=== PATIENT | female | born 1950 | race Caucasian/White ===

== ENCOUNTER 2016-09-14 23:45 | Inpatient (IN) | payer MEDICARE, MEDICAID ==
[2016-09-15] MEDS ORDERED: NITROGLYCERIN SUBLINGUAL 0.4 MG BOTTLE OF 25. SL PRN
[2016-09-15] MEDS ORDERED: ASPIRIN 81 MG TAB.CHEW PO ONE (00:30)
[2016-09-15 00:47] LABS: BASO # 0.1 x10^3/uL (0.0-0.2); BASO % 1 % (0-3); EOS % 3 % (0-3); HEMATOCRIT 37.7 % (36.0-47.0); HEMOGLOBIN 12.1 g/dL (12.0-15.5); LYMPH # 3.2 x10^3/uL (1.0-4.8); LYMPH % 24 % (24-48); MEAN CORPUSCULAR HEMOGLOBIN 29 pg (25-35); MEAN CORPUSCULAR HGB CONC 32 g/dL (31-37); MEAN CORPUSCULAR VOLUME 89 fL (79-100); MONO % 9 % (0-9); NEUT % 63 % (31-73); PLATELET COUNT 417 x10^3/uL (140-400); RED BLOOD COUNT 4.24 x10^6/uL (3.50-5.40); RED CELL DISTRIBUTION WIDTH 14.7 % (11.5-14.5); WHITE BLOOD COUNT 13.4 x10^3/uL (4.0-11.0)
[2016-09-15 00:59] LABS: ANION GAP 7 (6-14); BLOOD UREA NITROGEN 31 mg/dL (7-20); CALCIUM 8.6 mg/dL (8.5-10.1); CARBON DIOXIDE 33 mmol/L (21-32); CHLORIDE 101 mmol/L (98-107); CREATININE 0.6 mg/dL (0.6-1.0); GLUCOSE 110 mg/dL (70-99); POTASSIUM 4.2 mmol/L (3.5-5.1); SODIUM 141 mmol/L (136-145)
[2016-09-15] MEDS ORDERED: ONDANSETRON PF 4 MG/2 ML VIAL. IV PRN (01:00)
[2016-09-15] MEDS ORDERED: MORPHINE SULFATE 2 MG/ML DISP.SYRIN. IV PRN ×2 (01:00)
[2016-09-15 01:05] LABS: ALK PHOS 47 U/L (46-116); ALT (SGPT) 55 U/L (14-59); AST (SGOT) 25 U/L (15-37); DIRECT BILIRUBIN < 0.1 mg/dL (0.0-0.2); TOTAL BILIRUBIN 0.3 mg/dL (0.2-1.0); TOTAL PROTEIN 5.7 g/dL (6.4-8.2)
[2016-09-15 01:16] LABS: % EOS 2 % (0-5); PLT ESTIMATE ADEQUATE (ADEQUATE)
--- NOTE | 2016-09-15 02:05 | ACF ---
Admission Forms Criteria PAIN MANAGEMENT [facility] Clinical Indications for Admission to Inpatient Care (Place 'X' for any and all applicable criteria): Hospital admission is needed for appropriate care of the patient because of ANY ONE of the following are present (1)(2)(3)(4)(5): [X]I. Severe pain requiring acute inpatient management as indicated by ALL of the following (2)(5)(10): [X]a) Continuous or frequent (eg, every 2 to 4 hours) parenteral analgesics required [A] [ ]b) Necessity (ie, alternative approaches not effective) for analgesic regimen that can only be performed or initiated in inpatient setting [ ]II. Pain causing debilitation to the point of inability to function or be supported at any other level of care [ ]III. Severe side effects from pain medications as indicated by ANY ONE of the following (12)(13)(14)(15): [ ]a) Uncontrollable seizures [ ]b) Cardiac arrhythmias [ ]c) Severe volume depletion [ ]d) Vomiting that is uncontrollable at any other level of care [ ]e) Altered mental status (Sheridan coma scale score less than 13) [ ]f) Obstipation with inadequate GI function to maintain nutrition [ ]g) Dehydration that is severe or persistent The original [employer] content created by [employer] has been revised. The portions of the content which have been revised are identified through the use of italic text or in bold, and [facility] has neither reviewed nor approved the modified material. All other unmodified content is copyright [employer]. Please see references footnoted in the original [employer] edition 2016 Admission Criteria Met?: Yes JENNIFER LONGORIA Sep 15, 2016 02:05
--- NOTE | 2016-09-15 02:27 | PHYS DOC ---
Past Medical History Past Medical History: Anxiety, Arthritis, COPD, Depression, High Cholesterol, Hypertension Additional Past Medical Histor: OVERACTIVE BLADDER, MACULAR DEGENERATION, Past Surgical History: Appendectomy, Cholecystectomy, Tonsillectomy Additional Past Surgical Histo: CARPAL TUNNEL, CATARACT, Alcohol Use: None Drug Use: None Adult General Chief Complaint Chief Complaint: CHEST PAIN HPI HPI 65-year-old female presenting to the emergency department today with chest pain. She reports it starting approximately 2 hours ago radiating to the back is associated with nausea. She describes it as a heaviness and 5 out of 10. The pain is intermittent. She also has had a cough for a few days without fever. She reports having COPD but denies this sensation feeling like her COPD. Review of Systems Review of Systems ROS negative for abdominal pain. Positive for nausea. Negative for vomiting. Negative for headache fevers or chills. All other review of systems is negative unless otherwise noted in history of present illness. Current Medications Current Medications Current Medications Medications (Trade) Dose Ordered Sig/Elie Start Time Stop Time Status Last Admin Dose Admin Aspirin (Children'S Aspirin) 324 mg 1X ONCE 09/15/16 00:30 09/15/16 00:31 DC Morphine Sulfate 2 mg PRN Q1HR PRN 09/15/16 00:00 09/15/16 06:00 Nitroglycerin (Nitrostat) 0.4 mg PRN Q5MIN PRN 09/15/16 00:00 Allergies Allergies Allergies Coded Allergies Type Severity Reaction Last Updated Verified Penicillins Allergy Intermediate 09/15/16 Yes codeine Allergy Intermediate 09/15/16 Yes vitamin A Allergy Intermediate 09/15/16 Yes Physical Exam Physical Exam Constitutional: Well developed, well nourished, no acute distress, non-toxic appearance. HENT: Normocephalic, atraumatic, bilateral external ears normal, oropharynx moist, no oral exudates, nose normal. [] Eyes: PERRLA, EOMI, conjunctiva normal, no discharge. Neck: Normal range of motion, no tenderness, supple, no stridor. [] Cardiovascular:Heart rate regular rhythm, no murmur Lungs & Thorax: Patient's lung sounds show prolonged expiratory phase. No crackles. Mild wheezing more on the left than the right. Abdomen: Bowel sounds normal, soft, no tenderness, no masses, no pulsatile masses. [] Skin: Warm, dry, no erythema, no rash. Back: No tenderness, no CVA tenderness. [] Extremities: No tenderness, no cyanosis, no clubbing, ROM intact, no edema. Neurologic: Alert and oriented X 3, normal motor function, normal sensory function, no focal deficits noted. Psychologic: Affect normal, judgement normal, mood normal. [] Current Patient Data Vital Signs Vital Signs Date Time Temp Pulse Resp B/P Pulse Ox O2 Delivery O2 Flow Rate FiO2 09/14/16 23:58 98.0 94 20 155/65 94 Room Air 98.0 Lab Values Laboratory Tests Test 09/15/16 00:30 White Blood Count 13.4x10^3/uL (4.0-11.0) H Red Blood Count 4.24x10^6/uL (3.50-5.40) Hemoglobin 12.1g/dL (12.0-15.5) Hematocrit 37.7% (36.0-47.0) Mean Corpuscular Volume 89fL (79-100) Mean Corpuscular Hemoglobin 29pg (25-35) Mean Corpuscular Hemoglobin Concent 32g/dL (31-37) Red Cell Distribution Width 14.7% (11.5-14.5) H Platelet Count 417x10^3/uL (140-400) H Neutrophils (%) (Auto) 63% (31-73) Lymphocytes (%) (Auto) 24% (24-48) Monocytes (%) (Auto) 9% (0-9) Eosinophils (%) (Auto) 3% (0-3) Basophils (%) (Auto) 1% (0-3) Neutrophils # (Auto) 8.5x10^3uL (1.8-7.7) H Lymphocytes # (Auto) 3.2x10^3/uL (1.0-4.8) Monocytes # (Auto) 1.2x10^3/uL (0.0-1.1) H Eosinophils # (Auto) 0.4x10^3/uL (0.0-0.7) Basophils # (Auto) 0.1x10^3/uL (0.0-0.2) Segmented Neutrophils % 66% (35-66) Band Neutrophils % 2% (0-9) Lymphocytes % 25% (24-48) Monocytes % 5% (0-10) Eosinophils % 2% (0-5) Platelet Estimate Adequate (ADEQUATE) Sodium Level 141mmol/L (136-145) Potassium Level 4.2mmol/L (3.5-5.1) Chloride Level 101mmol/L (98-107) Carbon Dioxide Level 33mmol/L (21-32) H Anion Gap 7 (6-14) Blood Urea Nitrogen 31mg/dL (7-20) H Creatinine 0.6mg/dL (0.6-1.0) Estimated GFR (Cockcroft-Gault) 100.0 Glucose Level 110mg/dL (70-99) H Calcium Level 8.6mg/dL (8.5-10.1) Total Bilirubin 0.3mg/dL (0.2-1.0) Direct Bilirubin < 0.1mg/dL (0.0-0.2) Aspartate Amino Transferase (AST) 25U/L (15-37) Alanine Aminotransferase (ALT) 55U/L (14-59) Alkaline Phosphatase 47U/L (46-116) Troponin I Quantitative < 0.017ng/mL (0.000-0.055) PO-Mxt-O-Type Natriuretic Peptide 46pg/mL (0-124) Total Protein 5.7g/dL (6.4-8.2) L Albumin 3.0g/dL (3.4-5.0) L Lipase 245U/L (73-393) Laboratory Tests 09/15/16 00:30 Laboratory Tests 09/15/16 00:30 EKG EKG [] EKG shows sinus rhythm with a regular rate. [place] is within normal limits. ST segments congruent. Radiology/Procedures Radiology/Procedures Chest x-ray shows mild radio opacification the left lower lobe cannot rule out infiltrate. Patient is not febrile and is not hypoxic. We will admit the patient for clinical monitoring and reassessment in the morning. Course & Med Decision Making Course & Med Decision Making Pertinent Labs and Imaging studies reviewed. (See chart for details) [] 65-year-old female presenting to the emergency department today with chest pain shortness of breath. On evaluation patient's vital signs afebrile. Mildly fast heart rate. Mild hypertension. Physical exam showed wheezing and prolonged expert phase. The patient was given DuoNeb. The patient was also given aspirin prior to arrival. EKG unremarkable. Chest x-ray showed radio opacification of the left lower area with cardiac blurring possible pneumonia though the patient' s clinical presentation does not suggest it. Labs sent which showed leukocytosis. Chemistry panel showed uremia with mild CO2 retention. Troponin negative. The patient was then admitted to our hospital for further evaluation workup and care. Dragon Disclaimer Dragon Disclaimer This electronic medical record was generated, in whole or in part, using a voice recognition dictation system. Departure Departure Impression: Primary Impression: Chest pain Disposition: ADMITTED INPATIENT Admitting Physician: Edwina Mayer Condition: STABLE Referrals: TERI CARRASQUILLO MD (PCP) SANJU CARRILLO MD Sep 15, 2016 02:27
[2016-09-15 02:30] VITALS: BP 129/68
[2016-09-15] MEDS ORDERED: IPRATRPIUM/ALBUTEROL 0.5/2.5MG 3 ML NEBU. NEB ONE (03:00)
[2016-09-15] MEDS ORDERED: TOLT2TAB2 PO (05:39)
[2016-09-15] MEDS ORDERED: BUDE10.2 IH (05:39)
[2016-09-15] MEDS ORDERED: FLUT9.9S NS (05:39)
[2016-09-15] MEDS ORDERED: CITA40TA12 PO (05:39)
[2016-09-15] MEDS ORDERED: CELE200C PO (05:39)
[2016-09-15] MEDS ORDERED: ACET325T9 PO (05:39)
[2016-09-15] MEDS ORDERED: ROFL500T PO (05:39)
[2016-09-15] MEDS ORDERED: ASPI-482 PO (05:39)
[2016-09-15] MEDS ORDERED: CEFT1PIG2 IV (05:39)
[2016-09-15] MEDS ORDERED: GUAI600T28 PO (05:39)
[2016-09-15] MEDS ORDERED: PRED20TA PO (06:14)
[2016-09-15] MEDS ORDERED: CALC-222 PO (06:14)
[2016-09-15] MEDS ORDERED: LISI10TA2 PO (06:14)
[2016-09-15] MEDS ORDERED: IPRA3AMP NEB (06:14)
[2016-09-15] MEDS ORDERED: PRED50TA PO (06:14)
[2016-09-15] MEDS ORDERED: UMEC62.5 IH (06:14)
[2016-09-15] MEDS ORDERED: PRED-220 PO (06:14)
[2016-09-15] MEDS ORDERED: ENOX40DI SQ (06:14)
--- NOTE | 2016-09-15 06:14 | EKG ---
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
[2016-09-15] MEDS ORDERED: SIMV10TA3 PO (06:19)
[2016-09-15] MEDS ORDERED: CHOL10002 PO (06:19)
[2016-09-15] MEDS ORDERED: PROAIR HFA8.5 GM INH (06:19)
[2016-09-15] MEDS ORDERED: VITA400C36 PO (06:19)
[2016-09-15] MEDS ORDERED: DESV100T PO (06:19)
[2016-09-15] MEDS ORDERED: MULT-638 PO (06:19)
[2016-09-15] MEDS ORDERED: ROPI0.5T PO (06:19)
[2016-09-15 07:20] VITALS: BP_SYST 116; BP_SYST 131; BP_DIAS 73; BP_DIAS 77
--- NOTE | 2016-09-15 07:48 | RAD ---
EXAM: Chest, single view. HISTORY: Chest pain. COMPARISON: None. FINDINGS: A frontal view of the chest is obtained. There is bilateral basilar atelectasis. There is nodular opacity overlying the left upper lobe. There is no consolidation, effusion or pneumothorax. The heart is normal in size. There is a fracture deformity of the proximal right humerus. IMPRESSION: 1. Suspected bilateral basilar atelectasis. 2. Small nodular opacity overlying the left upper lobe, more prominent than expected for an anterior rib and. Short-term radiographic or CT follow-up is recommended to exclude a noncalcified nodule in this location. 3. Proximal right humeral fracture deformity of uncertain chronicity.
[2016-09-15] MEDS ORDERED: NON FORMULARY ITEM (Albuterol Sulfate (Proair Hfa Inhaler) 2 PUFF) INH PRN (08:30)
[2016-09-15] MEDS ORDERED: ACETAMINOPHEN 325 MG TABLET. PO PRN (08:30)
--- NOTE | 2016-09-15 08:30 | PDOC ---
PROGRESS NOTES Subjective Subjective Patient reports that chest pain is much improved but some mild discomfort persists. Objective Objective Vital Signs Date Time Temp Pulse Resp B/P Pulse Ox O2 Delivery O2 Flow Rate FiO2 09/15/16 07:20 98.1 91 19 116/73 98 Nasal Cannula 2.0 98.1 Intake and Output 09/15/16 07:00 Output Total 300 ml Balance -300 ml Output Urine Total 300 ml # Voids 1 Physical Exam Abdomen: Normal bowel sounds, Soft, No tenderness Heart: Regular rate, Other (some chest wall TTP is present) Extremities: No edema General: Alert, Oriented X3, No acute distress Lungs: Other (BS moderately decreased throughout, otherwise CTA, no wheezes heard) Assessment Assessment Problems Medical Problems: (1) Chest pain Status: Acute Plan Plan of Care 1. Chest pain - atypical but patient with several risk factors and no cardiac evaluation for years per her report. First Troponin is WNL. Will consult Cardiology to help with further evaluation, patient is agreeable to this. 2. Acute on chronic respiratory failure with AE COPD and recent pneumonia - Continue Rocephin, po Prednisone and all of patient's pulmonary meds. CXR at admission with some atelectasis but no acute infiltrate. 3. chronic anxiety - stable, continue home meds. 4. debility from recent hospitalization - this is why patient was at [facility]. Continue therapies while she is here, anticipate transfer back to if cardiac testing is unremarkable. Comment Review of Relevant I have reviewed the following items brennen (where applicable) has been applied. Labs Laboratory Tests Test 09/15/16 00:30 White Blood Count 13.4x10^3/uL (4.0-11.0) Red Blood Count 4.24x10^6/uL (3.50-5.40) Hemoglobin 12.1g/dL (12.0-15.5) Hematocrit 37.7% (36.0-47.0) Mean Corpuscular Volume 89fL (79-100) Mean Corpuscular Hemoglobin 29pg (25-35) Mean Corpuscular Hemoglobin Concent 32g/dL (31-37) Red Cell Distribution Width 14.7% (11.5-14.5) Platelet Count 417x10^3/uL (140-400) Neutrophils (%) (Auto) 63% (31-73) Lymphocytes (%) (Auto) 24% (24-48) Monocytes (%) (Auto) 9% (0-9) Eosinophils (%) (Auto) 3% (0-3) Basophils (%) (Auto) 1% (0-3) Neutrophils # (Auto) 8.5x10^3uL (1.8-7.7) Lymphocytes # (Auto) 3.2x10^3/uL (1.0-4.8) Monocytes # (Auto) 1.2x10^3/uL (0.0-1.1) Eosinophils # (Auto) 0.4x10^3/uL (0.0-0.7) Basophils # (Auto) 0.1x10^3/uL (0.0-0.2) Segmented Neutrophils % 66% (35-66) Band Neutrophils % 2% (0-9) Lymphocytes % 25% (24-48) Monocytes % 5% (0-10) Eosinophils % 2% (0-5) Platelet Estimate Adequate (ADEQUATE) Sodium Level 141mmol/L (136-145) Potassium Level 4.2mmol/L (3.5-5.1) Chloride Level 101mmol/L (98-107) Carbon Dioxide Level 33mmol/L (21-32) Anion Gap 7 (6-14) Blood Urea Nitrogen 31mg/dL (7-20) Creatinine 0.6mg/dL (0.6-1.0) Estimated GFR (Cockcroft-Gault) 100.0 Glucose Level 110mg/dL (70-99) Calcium Level 8.6mg/dL (8.5-10.1) Total Bilirubin 0.3mg/dL (0.2-1.0) Direct Bilirubin < 0.1mg/dL (0.0-0.2) Aspartate Amino Transf (AST/SGOT) 25U/L (15-37) Alanine Aminotransferase (ALT/SGPT) 55U/L (14-59) Alkaline Phosphatase 47U/L (46-116) Troponin I Quantitative < 0.017ng/mL (0.000-0.055) MZ-Hvx-G-Type Natriuretic Peptide 46pg/mL (0-124) Total Protein 5.7g/dL (6.4-8.2) Albumin 3.0g/dL (3.4-5.0) Lipase 245U/L (73-393) Laboratory Tests Test 09/15/16 00:30 White Blood Count 13.4x10^3/uL (4.0-11.0) Red Blood Count 4.24x10^6/uL (3.50-5.40) Hemoglobin 12.1g/dL (12.0-15.5) Hematocrit 37.7% (36.0-47.0) Mean Corpuscular Volume 89fL (79-100) Mean Corpuscular Hemoglobin 29pg (25-35) Mean Corpuscular Hemoglobin Concent 32g/dL (31-37) Red Cell Distribution Width 14.7% (11.5-14.5) Platelet Count 417x10^3/uL (140-400) Neutrophils (%) (Auto) 63% (31-73) Lymphocytes (%) (Auto) 24% (24-48) Monocytes (%) (Auto) 9% (0-9) Eosinophils (%) (Auto) 3% (0-3) Basophils (%) (Auto) 1% (0-3) Neutrophils # (Auto) 8.5x10^3uL (1.8-7.7) Lymphocytes # (Auto) 3.2x10^3/uL (1.0-4.8) Monocytes # (Auto) 1.2x10^3/uL (0.0-1.1) Eosinophils # (Auto) 0.4x10^3/uL (0.0-0.7) Basophils # (Auto) 0.1x10^3/uL (0.0-0.2) Segmented Neutrophils % 66% (35-66) Band Neutrophils % 2% (0-9) Lymphocytes % 25% (24-48) Monocytes % 5% (0-10) Eosinophils % 2% (0-5) Platelet Estimate Adequate (ADEQUATE) Sodium Level 141mmol/L (136-145) Potassium Level 4.2mmol/L (3.5-5.1) Chloride Level 101mmol/L (98-107) Carbon Dioxide Level 33mmol/L (21-32) Anion Gap 7 (6-14) Blood Urea Nitrogen 31mg/dL (7-20) Creatinine 0.6mg/dL (0.6-1.0) Estimated GFR (Cockcroft-Gault) 100.0 Glucose Level 110mg/dL (70-99) Calcium Level 8.6mg/dL (8.5-10.1) Total Bilirubin 0.3mg/dL (0.2-1.0) Direct Bilirubin < 0.1mg/dL (0.0-0.2) Aspartate Amino Transf (AST/SGOT) 25U/L (15-37) Alanine Aminotransferase (ALT/SGPT) 55U/L (14-59) Alkaline Phosphatase 47U/L (46-116) Troponin I Quantitative < 0.017ng/mL (0.000-0.055) RW-Dlg-W-Type Natriuretic Peptide 46pg/mL (0-124) Total Protein 5.7g/dL (6.4-8.2) Albumin 3.0g/dL (3.4-5.0) Lipase 245U/L (73-393) Medications Current Medications Aspirin (Children'S Aspirin) 324 mg 1X ONCE PO ; Start 09/15/16 at 00:30; Stop 09/15/16 at 00:31; Status DC Nitroglycerin (Nitrostat) 0.4 mg PRN Q5MIN PRN SL CHEST PAIN; Start 09/15/16 at 00:00 Morphine Sulfate 2 mg PRN Q1HR PRN IV SEVERE PAIN; Start 09/15/16 at 00:00; Stop 09/15/16 at 06:00; Status DC Ondansetron HCl (Zofran) 4 mg PRN Q8HRS PRN IV NAUSEA/VOMITING; Start 09/15/16 at 01:00; Stop 09/16/16 at 00:59 Morphine Sulfate 2 mg PRN Q2HR PRN IV SEVERE PAIN; Start 09/15/16 at 01:00; Stop 09/16/16 at 00:59 Albuterol/ Ipratropium 3 ml 3 ml 1X ONCE NEB ; Start 09/15/16 at 03:00; Stop at 03:01; Status DC Levofloxacin/ Dextrose (LEVAQUIN 500mg PREMIX) 100 ml @ 100 mls/hr 1X ONCE IV Last administered on 09/15/16t 06:31; Start 09/15/16 at 06:00; Stop 09/15/16 at 06:59; Status DC Active Scripts Active Reported Vitamin E (Vitamin E Mixed) 400 Unit Capsule 400 Unit PO DAILY Vitamin D (Cholecalciferol (Vitamin D3)) 1,000 Unit Tablet 1,000 Unit PO DAILY Thera M Plus Tablet (Multivits,Ca,Minerals/Iron/FA) 1 Each Tablet 1 Each PO DAILY Simvastatin 10 Mg Tablet 1 Tab PO QHS Requip (Ropinirole Hcl) 0.5 Mg Tablet 0.25 Mg PO HS Proair Hfa Inhaler (Albuterol Sulfate) 8.5 Gm Hfa.aer.ad 2 Puff INH PRN Q4HRS PRN Pristiq Er (Desvenlafaxine Succinate) 100 Mg Tab.er.24h 1 Tab PO DAILY Prednisone 20 Mg Tablet 60 Mg PO DAILY Prednisone 50 Mg Tablet 50 Mg PO DAILY Prednisone 20 Mg Tablet 40 Mg PO DAILY Prednisone 20 Mg Tablet 1 Tab PO DAILY Prednisone 20 Mg Tablet 30 Mg PO DAILY Prednisone 10 Mg Tablet 10 Mg PO DAILY Oyster Shell 500 Mg + Vit D Tb (Calcium Carbonate/Vitamin D3) 1 Each Tablet 1 Each PO TID Lovenox (Enoxaparin Sodium) 40 Mg/0.4 Ml Disp.syrin 0.4 Ml SQ DAILY Lisinopril 10 Mg Tablet 1 Tab PO DAILY Duoneb 0.5-3(2.5) Mg/3 Ml (Albuterol/Ipratropium) 3 Ml Ampul.neb 3 Ml NEB QID Incruse Ellipta (Umeclidinium [place]) 62.5 Mcg Blst.w.dev 62.5 Mcg IH DAILY Guaifenesin 600 Mg Tablet.er 600 Mg PO BID Flonase Allergy Relief (Fluticasone Propionate) 9.9 Ml [place].susp 2 Sprays NS DAILY Detrol (Tolterodine Tartrate) 2 Mg Tablet 2 Mg PO BID Daliresp (Roflumilast) 500 Mcg Tablet 1 Tab PO DAILY Celexa (Citalopram Hydrobromide) 40 Mg Tablet 1 Tab PO DAILY Celebrex (Celecoxib) 200 Mg Capsule 1 Cap PO DAILY Ceftriaxone 1 Gm-D5w Bag (Ceftriaxone Na/Dextrose,Iso) 1 Gm/50 Ml Piggyback 1 Gm IV DAILY Symbicort 160-4.5 Mcg Inhaler (Budesonide/Formoterol Fumarate) 10.2 Gm Hfa.aer.ad 2 Puff IH BID Aspir 81 (Aspirin) 81 Mg Tablet.dr 1 Tab PO DAILY Tylenol (Acetaminophen) 325 Mg Tablet 2 Tab PO PRN Q4HRS PRN Vitals/I & O Vital Sign - Last 24 Hours 09/14/16 09/15/16 09/15/16 09/15/16 23:58 00:57 01:27 01:57 Temp 98.0 98.0 Pulse 94 90 88 88 Resp 20 26 20 26 B/P 155/65 109/56 129/60 110/51 Pulse Ox 94 92 94 95 O2 Delivery Room Air Nasal Cannula Nasal Cannula Nasal Cannula O2 Flow Rate 2 2 2 09/15/16 09/15/16 09/15/16 02:30 02:57 07:20 Temp 97.5 98.1 97.5 98.1 Pulse 93 91 Resp 20 19 B/P 129/68 116/73 Pulse Ox 96 98 O2 Delivery Nasal Cannula Nasal Cannula Nasal Cannula O2 Flow Rate 2.0 3.0 2.0 Intake and Output 09/14/16 09/14/16 09/15/16 15:00 23:00 07:00 Output Total 300 ml Balance -300 ml ERICA COLIN MD Sep 15, 2016 08:30
[2016-09-15] MEDS ORDERED: NON FORMULARY ITEM (Budesonide/Formoterol Fumarate (Symbicort 160-4.5 Mcg Inhaler) 2 PUFF) IH SCH (09:00)
[2016-09-15] MEDS ORDERED: IPRATRPIUM/ALBUTEROL 0.5/2.5MG 3 ML NEBU. NEB SCH (09:00)
[2016-09-15] MEDS ORDERED: NON FORMULARY ITEM (Umeclidinium Bromide (Incruse Ellipta) 62.5 MCG) IH SCH (09:00)
[2016-09-15] MEDS: FLUTICASONE 50MCG/NASAL SPRAY 16GM BOTTLE. NS SCH (09:00)
[2016-09-15] MEDS ORDERED: ALBUTEROL SULFATE 2.5 MG/3 ML NEBU. NEB PRN (09:15)
--- NOTE | 2016-09-15 09:53 | PDOC2 ---
DWAIN AYOUB CARE SERVICES MANAGER 09/15/16 0953: CARDIAC CONSULT DATE OF CONSULT Date of Consult DATE: 09/15/16 TIME: 09:17 REASON FOR CONSULT Reason for Consult: Chest pain REFERRING PHYSICIAN Referring Physician: Leyla SOURCE Source: Chart review, Patient HISTORY OF PRESENT ILLNESS HISTORY OF PRESENT ILLNESS This is a pleasant 65 yo female admitted for complains of chest pain. Reports that she was watching TV last night when she felt that her midchest was hurting felt like squeezing and that her breast felt like it was going to explode. This radiated to her neck but explained no sensation of burning or throat irritation. She did felt nauseated and mildly SOA with diaphoresis. Also intermittent palpitations which is not new for her. Verbalized HTN, HLP treated with meds and DM2 with diet control. She is positive for COPD O2 dependent and JUS with CPAP which she is compliant about with her device and medications treatments. Denies any CAD, CVA, or recent respiratory infections as well as no fever chills, or intractable coughing, falls or any injury. Verbalized no priod episodes of syncope and has not had any stress test in yrs. To note her CP lasted about 2 hours got better in ED and currently no complains. She is positive for DVT to her right popliteal area provoked by RLE immobilization due to ruptured Achilles about 8 yrs ago , treated with anticoagulation without recurrence. She does utilize ASA daily as well as celebrex and prednisone. PAST MEDICAL HISTORY Cardiovascular: HTN, Hyperlipidemia Pulmonary: COPD (O2 dependent), Other (UJS) CENTRAL NERVOUS SYSTEM: Carpal Tunnel Syndrome GI: No pertinent hx Heme/Onc: No pertinent hx Hepatobiliary: No pertinent hx Psych: No pertinent hx Musculoskeletal: Osteoarthritis, Other (right arm fracture over a yr ago treated with surgery) Rheumatologic: No pertinent hx Infectious disease: No pertinent hx ENT: Other (cataract) Renal/: UTI Endocrine: Diabetes (2 diet controlled) Dermatology: No pertinent hx PAST SURGICAL HISTORY Past Surgical History: Appendectomy, Cholecystectomy, Cataract Removal, Tonsillectomy, Other (bilateral carpal tunnel release; right humeral fracture repair) FAMILY HISTORY Family History: Coronary Artery Disease (mother and father) SOCIAL HISTORY Smoke: No (quit 4 yrs ago, >50 pk yr ) ALCOHOL: none Drugs: None Lives: with Family CURRENT MEDICATIONS CURRENT MEDICATIONS Current Medications Medications (Trade) Dose Ordered Sig/Elie Route PRN Reason Start Time Stop Time Status Last Admin Dose Admin Levofloxacin/ Dextrose (LEVAQUIN 500mg PREMIX) 100 ml @ 100 mls/hr 1X ONCE IV 09/15/16 06:00 09/15/16 06:59 DC 09/15/16 06:31 ALLERGIES ALLERGIES: Coded Allergies: Penicillins (Verified Allergy, Intermediate, 09/15/16) codeine (Verified Allergy, Intermediate, 09/15/16) vitamin A (Verified Allergy, Intermediate, 09/15/16) ROS Review of System 14 point ROS evaluated with pertinent positives noted per HPI PHYSICAL EXAM General: Alert, Oriented X3, Cooperative, No acute distress HEENT: Atraumatic, Mucous membr. moist/pink Lungs: Other (bibasilar crackles) Heart: Regular rate, Normal S1, Normal S2, Other (distant heart sounds; SR without significant ectopies overnight) Abdomen: Soft, No tenderness Extremities: No edema Skin: No breakdown, No significant lesion Neuro: Normal speech, Sensation intact Psych/Mental Status: Mental status NL, Mood NL MUSCULOSKELETAL: Osteoarthritic changes both hands VITALS VITALS Vital Signs Date Time Temp Pulse Resp B/P Pulse Ox O2 Delivery O2 Flow Rate FiO2 09/15/16 07:20 98.1 91 19 116/73 98 Nasal Cannula 2.0 98.1 LABS Lab: Laboratory Tests Test 09/15/16 00:30 White Blood Count 13.4x10^3/uL (4.0-11.0) Red Blood Count 4.24x10^6/uL (3.50-5.40) Hemoglobin 12.1g/dL (12.0-15.5) Hematocrit 37.7% (36.0-47.0) Mean Corpuscular Volume 89fL (79-100) Mean Corpuscular Hemoglobin 29pg (25-35) Mean Corpuscular Hemoglobin Concent 32g/dL (31-37) Red Cell Distribution Width 14.7% (11.5-14.5) Platelet Count 417x10^3/uL (140-400) Neutrophils (%) (Auto) 63% (31-73) Lymphocytes (%) (Auto) 24% (24-48) Monocytes (%) (Auto) 9% (0-9) Eosinophils (%) (Auto) 3% (0-3) Basophils (%) (Auto) 1% (0-3) Neutrophils # (Auto) 8.5x10^3uL (1.8-7.7) Lymphocytes # (Auto) 3.2x10^3/uL (1.0-4.8) Monocytes # (Auto) 1.2x10^3/uL (0.0-1.1) Eosinophils # (Auto) 0.4x10^3/uL (0.0-0.7) Basophils # (Auto) 0.1x10^3/uL (0.0-0.2) Segmented Neutrophils % 66% (35-66) Band Neutrophils % 2% (0-9) Lymphocytes % 25% (24-48) Monocytes % 5% (0-10) Eosinophils % 2% (0-5) Platelet Estimate Adequate (ADEQUATE) Sodium Level 141mmol/L (136-145) Potassium Level 4.2mmol/L (3.5-5.1) Chloride Level 101mmol/L (98-107) Carbon Dioxide Level 33mmol/L (21-32) Anion Gap 7 (6-14) Blood Urea Nitrogen 31mg/dL (7-20) Creatinine 0.6mg/dL (0.6-1.0) Estimated GFR (Cockcroft-Gault) 100.0 Glucose Level 110mg/dL (70-99) Calcium Level 8.6mg/dL (8.5-10.1) Total Bilirubin 0.3mg/dL (0.2-1.0) Direct Bilirubin < 0.1mg/dL (0.0-0.2) Aspartate Amino Transf (AST/SGOT) 25U/L (15-37) Alanine Aminotransferase (ALT/SGPT) 55U/L (14-59) Alkaline Phosphatase 47U/L (46-116) Troponin I Quantitative < 0.017ng/mL (0.000-0.055) RB-Fqt-I-Type Natriuretic Peptide 46pg/mL (0-124) Total Protein 5.7g/dL (6.4-8.2) Albumin 3.0g/dL (3.4-5.0) Lipase 245U/L (73-393) ASSESSMENT/PLAN ASSESSMENT/PLAN 1. Chest pain: notable for typical features. Cardiac risk factors noted. Initial trop normal, EKG without acute changes. Proceed with MPI to completely rule out ischemic etiology. TTE today and note baseline. Continue with ECASA. 2. COPD/JUS: controlled. O2 dependent and with CPAP. Follows with Dr. Booker around [place], [place]. 3. HTN: controlled, continue with home regimen 4. HLP: lipid panel, TSH, statin 5. DM2: diet controlled per pt. 6. Chronic NSAID use: celebrex, ASA with steroid use as well. Recommend addition of H2 kvng or PPI for GI prophylaxis. Problems: MONIQUE ALVARADO MD 09/15/16 1641: CARDIAC CONSULT ALLERGIES ALLERGIES: Coded Allergies: Penicillins (Verified Allergy, Intermediate, 09/15/16) codeine (Verified Allergy, Intermediate, 09/15/16) vitamin A (Verified Allergy, Intermediate, 09/15/16) ASSESSMENT/PLAN ASSESSMENT/PLAN Patient seen and examined. 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 Chest pain with atypical features. Myocardial infarction ruled out. 2-D echo showed normal LV function and Lexiscan nuclear stress test did not show any ischemia. Chest pain noncardiac and most probably GI in etiology. Okay for discharge from cardiac standpoint. Thank you for your consultation. Problems: DWAIN AYOUB APRN Sep 15, 2016 09:53 MONIQUE ALVARADO MD Sep 15, 2016 16:41
--- NOTE | 2016-09-15 10:01 | HP ---
ADMIT DATE: 09/15/2016 CHIEF COMPLAINT: Chest pain. HISTORY OF PRESENT ILLNESS: The patient is a 65-year-old female who was recently transferred to [facility] from [facility] due to debility after hospitalization there. The patient reports that she was treated for pneumonia in the hospital. She had just been admitted to [facility] a few days ago and was starting physical and occupational therapy with the goal of returning home. On the evening prior to admission, she was resting in bed when she had the onset of severe chest pain. She describes it as heaviness or pressure as if something was sitting on her chest and it was difficult to catch her breath. She denies ever experiencing pain like this previously. When her pain persisted, she was given aspirin and transferred to the Emergency Room. Initial evaluation there shows troponin of less than 0.017. EKG is reported to not show any acute ischemic changes. The patient was admitted for further evaluation. PAST MEDICAL HISTORY: Chronic respiratory failure with COPD, oxygen dependent, recent pneumonia, chronic anxiety and depression, hyperlipidemia, restless legs, overactive bladder. PAST SURGICAL HISTORY: Cataract removal, tonsillectomy, appendectomy, cholecystectomy, carpal tunnel repair, ORIF of right arm fracture. ALLERGIES: The patient is allergic to penicillins, codeine and vitamin A. MEDICATIONS AT ADMISSION: Tylenol p.r.n., albuterol p.r.n., DuoNebs p.r.n., aspirin 81 mg daily, Symbicort 2 puffs b.i.d., calcium carbonate t.i.d., Rocephin 1 gram IV daily, Celebrex 200 mg daily, Celexa 40 mg daily, Pristiq 100 mg daily, Lovenox 40 mg subq daily, Flonase daily, lisinopril 10 mg daily, oral prednisone taper, Daliresp 500 mcg daily, Requip 0.25 mg at bedtime, simvastatin 10 mg daily, Detrol 2 mg b.i.d., Incruse Ellipta 62.5 mcg inhaled daily. FAMILY HISTORY: Noncontributory. SOCIAL HISTORY: The patient is . She has a long smoking history, but quit smoking cigarettes 4 years ago. REVIEW OF SYSTEMS: The patient denies fever or chills. She denies other episodes of chest pain or palpitations. She reports she had a treadmill test many years ago, which was apparently normal, but has not had any cardiac testing within the past several years. She has some chronic cough and shortness of air due to her COPD. This seems to be slowly improving with treatment for her recent pneumonia. She denies abdominal pain, nausea or vomiting. She denies lower extremity edema. Her mood has been good with her usual medications for this. She was feeling quite weak after her recent hospitalization, but feels that being at [facility] will help her with this as she has stayed there before for similar problems. PHYSICAL EXAMINATION: GENERAL: The patient is alert and oriented x 3, resting comfortably in bed, in no acute distress. HEENT: PERRL, EOMI, sclerae clear. Oropharynx: Mucous membranes moist. NECK: Supple, without lymphadenopathy. CHEST: Breath sounds are moderately decreased throughout. No wheezes heard. No cough with exam. Mild chest wall TTP. CARDIOVASCULAR: Regular rhythm without murmur. ABDOMEN: Soft, nontender, normoactive bowel sounds are present. EXTREMITIES: Without edema. ASSESSMENT AND PLAN: 1. Chest pain. This is atypical, but the patient does have several significant risk factors and no cardiac evaluation for many years. Her first troponin is within normal limits. Serial troponins have been ordered. We will consult Cardiology to help with further evaluation. The patient is agreeable to this. 2. Iogoq-kt-ulotzod respiratory failure with acute exacerbation of chronic obstructive pulmonary disease and recent pneumonia. This appears stable. Chest x-ray at admission showed some bibasilar atelectasis, but no acute infiltrate. We will continue the treatment that had been started at [facility] including Rocephin and oral prednisone. All of her usual pulmonary medications have been ordered as well. 3. Chronic anxiety. This is stable, continue home medication. 4. Debility from recent hospitalization. We will continue her therapies while she is here. Anticipate transfer back to [facility] if cardiac testing is unremarkable. ERICA COLIN MD DR: ANSON/odilon JOB#: [id number] / [id number] DINA
[2016-09-15 10:26] LABS: CHOLESTEROL/HDL RATIO 2.1
[2016-09-15 10:37] VITALS: BP 102/59
[2016-09-15] MEDS: BUDESONIDE 0.5 MG/2 ML NEBU NEB SCH ×2 (11:08→21:08)
[2016-09-15] MEDS: IPRATRPIUM/ALBUTEROL 0.5/2.5MG 3 ML NEBU. NEB SCH ×3 (11:08→21:06)
[2016-09-15] MEDS ORDERED: REGADENOSON 0.4 MG/5 ML DISP.SYRIN. IV ONE (11:15)
[2016-09-15] MEDS: CALCIUM CARB/VIT D3 500/200 TABLET PO SCH ×3 (12:00→18:38)
[2016-09-15] MEDS: CEFTRIAXONE SODIUM 1 GM in IV NORMAL SALINE 50ML 50 ML IV SCH (12:32)
[2016-09-15] MEDS: ENOXAPARIN 40 MG/0.4 ML DISP.SYRIN. SQ SCH (12:34)
[2016-09-15] MEDS: OXYBUTYNIN CHLORIDE 5 MG TABLET PO SCH ×3 (14:00→21:44)
[2016-09-15] MEDS: CELECOXIB 200 MG CAPSULE PO SCH (14:33)
[2016-09-15] MEDS: ROFLUMILAST 500 MCG TABLET. PO SCH (14:33)
[2016-09-15] MEDS: GUAIFENESIN ER 600 MG TABLET.ER PO SCH ×2 (14:34→21:44)
--- NOTE | 2016-09-15 14:34 | CARD ---
APPROVED REPORT EXAM: Two-dimensional and M-mode echocardiogram with Doppler and color Doppler. Other Information Quality : Average Rhythm : NSR with PACs INDICATION Chest Pain 2D DIMENSIONS Left Atrium(2D)2.6 (1.6-4.0cm)IVSd1.1 (0.7-1.1cm) Aortic Root(2D)2.2 (2.0-3.7cm)LVDd3.4 (3.9-5.9cm) LVOT Diameter2.0 (1.8-2.4cm)PWd1.2 (0.7-1.1cm) LVDs2.4 (2.5-4.0cm)FS (%) 31.0 % SV28.8 mlLVEF(%)59.8 (>50%) Aortic Valve AoV Peak Rommel.153.2cm/sAoV VTI26.5cm AO Peak GR.9.4mmHgLVOT Peak Rommel.110.9cm/s LVOT VTI 17.81cmAO Mean GR.5mmHg NIK (VMAX)2.80mv8HHX (VTI)2.06cm2 Mitral Valve MV E Lxwtoufq03.5cm/sMV DECEL IRZR658li MV A Dmdxpffj722.1cm/sMV E Mean Gr.3mmHg MV ILI75ykX/A Ratio0.7 MV A Gmdsnbla256jhTED (PHT)3.03cm2 TDI E/Lateral E'9.8E/Medial E'11.6 Pulmonary Valve PV Peak Usgvxfxb101.2cm/sPV Peak Grad.8mmHg RVOT VTI17.8cm Tricuspid Valve TR P. Obtqkmoy207hy/sRAP NAORELRI0asKp TR Peak Gr.25cjOoNJCC05xlNc LEFT VENTRICLE The left ventricle is normal size. There is normal left ventricular wall thickness. Left ventricle sy stolic function is normal. The Ejection Fraction is 60-65%. There is normal LV segmental wall motion. Tissue Doppler imaging reveals mild left ventricular diastolic dysfunction. Transmitral Doppler flow pattern is Grade I-abnormal relaxation pattern. RIGHT VENTRICLE The right ventricle is normal size. The right ventricular systolic function is normal. ATRIA The left atrium size is normal. The right atrium size is normal. The interatrial septum is intact wit h no evidence for an atrial septal defect or patent foramen ovale as noted on 2-D or Doppler imaging. AORTIC VALVE The aortic valve is normal in structure and function. The aortic valve is trileaflet. Doppler and Col or Flow revealed no significant aortic regurgitation. There is no significant aortic valvular stenosi s. MITRAL VALVE The mitral valve leaflets are thickened. There is no mitral valve stenosis. Doppler and Color Flow re vealed no mitral valve regurgitation noted. TRICUSPID VALVE The tricuspid valve is normal in structure and function. Doppler and Color Flow revealed mild tricusp id regurgitation. The PA pressure was estimated at 45 mmHg. There is no tricuspid valve stenosis. PULMONIC VALVE The pulmonic valve is not well visualized. Doppler and Color Flow revealed no pulmonic valvular regur gitation. There is no pulmonic valvular stenosis. GREAT VESSELS The aortic root is normal in size. The IVC is normal in size and collapses >50% with inspiration. PERICARDIAL EFFUSION There is no evidence of significant pericardial effusion. Critical Notification Critical Value: No <Conclusion> Left ventricle systolic function is normal. The Ejection Fraction is 60-65%. There is normal LV segmental wall motion. Transmitral Doppler flow pattern is Grade I-abnormal relaxation pattern. Mild tricuspid regurgitation. The PA pressure was estimated at 45 mmHg. There is no evidence of significant pericardial effusion.
[2016-09-15] MEDS: PREDNISONE 20 MG TABLET PO SCH (14:37)
[2016-09-15] MEDS: CITALOPRAM 20 MG TABLET. PO SCH (14:38)
[2016-09-15] MEDS: LISINOPRIL 10 MG TABLET PO SCH (14:38)
[2016-09-15] MEDS: CHOLECALCIFEROL (VITAMIN D3) 1,000 UNIT TABLET PO SCH (14:39)
[2016-09-15] MEDS: VITAMIN E 200 UNIT CAPSULE. PO SCH (14:39)
[2016-09-15] MEDS: MULTIVITAMIN with MINERAL TABLET. PO SCH (14:39)
[2016-09-15] MEDS: ASPIRIN ENTERIC COATED 81 MG TABLET.DR. PO SCH (14:40)
[2016-09-15] MEDS: DESVENLAFAXINE 50 MG TAB.ER.24H. PO SCH (14:40)
[2016-09-15 14:46] VITALS: BP 132/76
--- NOTE | 2016-09-15 15:31 | RAD ---
APPROVED REPORT Test Type: Pharmacological Stress Nurse/Tech: Dalia Moy RN Test Indications: chest pain Cardiac History: see ehr Medications: see ehr Medical History: see ehr Resting ECG: ST Resting Heart Rate: 104 bpm Resting Blood Pressure: 122/62mmHg Pretest Chest Pain: None Nurse/Tech Notes Lungs CTA, S1, S2 Consent: The procedure was explained to the patient in lay terms. Informed consent was witnessed. Keo eout was entered into [facility]. History and Stress Test performed by Kierra [facility]ens[facility] [employer]. Details Pharmacologic stress testing was performed using 0.4mg per 5ml of regadenoson given intravenously ove r 7-10 seconds. POST EXERCISE Reason for Termination: Infusion complete Max HR: 144 bpm Max Blood Pressure: 135/58mmHg Blood Pressure response to exercise: Normal blood pressure response during stress. Chest Pain: No. Arrhythmia: No. ST Change: No. INTERPRETATION Stress EKG Conclusion: The resting EKG shows a mild sinus tachycardia and slight nonspecific ST segme nt changes. The stress EKG shows no significant changes from baseline. No EKG evidence of stress-induced ischemia. Imaging Protocol IMAGE PROTOCOL: Rest Tc-99m/stress Tc-99m 1 day Rest: Stress: Viability: Radiopharm.Tc99m KpdomapayIi22k Sestamibi Swcc83qHf 34mCi Duration 15min. 10min. Img Date 09/15/2016 09/15/2016 Inj-Img Fnpf06bca. 120min. Rest Admin Site:IV - Right AntecubitalAdministrator:Dipak Ha RT (R)(N) Stress Admin Site: IV - Right AntecubitalAdministrator: Teodora Montalvo RT (R)(N) STRESS DATA End Diast. Vol.65.0mlAv. Heart Fvwm624.0bpm End Syst. Vol.18.0mlCO Index BSA4.9L/min Myocardial Honi326.0gEject. Ubadiqzz82.0% Stress Rates Pk. Fill Rate4.90EDV/secLVtime Pk. Fill 143.49msec Pk. Empty Rate4.95ESV/secLVtime Pk. Kasxg687.47msec 09/07 Pk. Fill0.78EDV/sec Stress Scores Regional WT2.00Summed WT14.00 Regional WM0.00Summed WM4.00 LV Perfusion The stress images showed no significant defects. The rest images showed no significant defects. Nuclear imaging shows no reversible ischemia or infarct. Wall Motion Normal left ventricular systolic function with an ejection fraction of greater than 70%. LV Perf. Quant 17 Seg. SSS0.00 17 Seg. SRS0.00 17 Seg. SDS0.00 Stress Defect Extent (% LAD)0.00Rest Defect Extent (% LAD)0.00Rev. Defect Extent (% LAD)0.00 Stress Defect Extent (% LCX) 0.00Rest Defect Extent (% LCX)0.00Rev. Defect Extent (% LCX)0.00 Stress Defect Extent (% RCA)0.00Rest Defect Extent (% RCA)0.00Rev. Defect Extent (% RCA)0.00 Stress Defect Extent (% YUE)0.00Rest Defect Extent (% YUE)0.00Rev. Defect Extent (% YUE)0.00 Conclusion 1. No EKG evidence of stress-induced ischemia. 2. Nuclear imaging shows no reversible ischemia or infarct. 3. Normal left ventricular systolic function with an ejection fraction of greater than 70%. 4. Low risk Lexiscan nuclear stress test.
[2016-09-15] MEDS: FAMOTIDINE 20 MG TABLET. PO SCH ×2 (16:30→21:44)
[2016-09-15 19:33] VITALS: BP 98/54
[2016-09-15] MEDS ORDERED: SIMVASTATIN 10 MG TABLET PO SCH (21:00)
[2016-09-15] MEDS ORDERED: rOPINIRole 0.25 MG TABLET. PO SCH (21:00)
[2016-09-15 23:07] VITALS: BP 112/53
[2016-09-16 03:37] VITALS: BP 106/60
[2016-09-16 06:28] LABS: BASO # 0.1 x10^3/uL (0.0-0.2); BASO % 1 % (0-3); EOS % 1 % (0-3); HEMATOCRIT 36.6 % (36.0-47.0); HEMOGLOBIN 11.8 g/dL (12.0-15.5); LYMPH # 1.3 x10^3/uL (1.0-4.8); LYMPH % 11 % (24-48); MEAN CORPUSCULAR HEMOGLOBIN 29 pg (25-35); MEAN CORPUSCULAR HGB CONC 32 g/dL (31-37); MEAN CORPUSCULAR VOLUME 89 fL (79-100); MONO % 9 % (0-9); NEUT % 78 % (31-73); PLATELET COUNT 391 x10^3/uL (140-400); RED CELL DISTRIBUTION WIDTH 14.7 % (11.5-14.5); WHITE BLOOD COUNT 11.7 x10^3/uL (4.0-11.0)
[2016-09-16 06:40] LABS: CALCIUM 8.1 mg/dL (8.5-10.1); CREATININE 0.7 mg/dL (0.6-1.0); GFR 83.7; POTASSIUM 4.2 mmol/L (3.5-5.1)
[2016-09-16 07:12] VITALS: BP 129/69
[2016-09-16] MEDS: BUDESONIDE 0.5 MG/2 ML NEBU NEB SCH (07:34)
[2016-09-16] MEDS: IPRATRPIUM/ALBUTEROL 0.5/2.5MG 3 ML NEBU. NEB SCH ×2 (07:34→12:11)
[2016-09-16] MEDS: FLUTICASONE 50MCG/NASAL SPRAY 16GM BOTTLE. NS SCH (09:00)
--- NOTE | 2016-09-16 09:18 | PDOC ---
PROGRESS NOTES Subjective Subjective Patient reports CP has resolved. Feels fine. Objective Objective Vital Signs Date Time Temp Pulse Resp B/P Pulse Ox O2 Delivery O2 Flow Rate FiO2 09/16/16 07:36 98 Nasal Cannula 2.0 09/16/16 07:12 97.5 81 19 129/69 97.5 Intake and Output 09/16/16 07:00 Intake Total 1020 ml Output Total 600 ml Balance 420 ml Intake Oral 1020 ml Output Urine Total 600 ml # Voids 4 Physical Exam Abdomen: Normal bowel sounds, Soft, No tenderness Heart: Regular rate Extremities: No edema General: Alert, Oriented X3, No acute distress Lungs: Other (BS moderately decreased throughout but CTA. No chest wall TTP.) Assessment Assessment Problems Medical Problems: (1) Chest pain Status: Acute Plan Plan of Care 1. Musculoskeletal chest pain - Echo and MPI yesterday were WNL and pain has resolved. Transfer back to today. 2. chronic respiratory failure with AE COPD and recent pneumonia - stable, sats good on O2. Continue present treatments. 3. chronic anxiety - appears well controlled, continue present meds. 4. debility - back to residential today to continue rehab. Comment Review of Relevant I have reviewed the following items brennen (where applicable) has been applied. Labs Laboratory Tests Test 09/15/16 00:30 09/15/16 02:45 09/15/16 08:21 09/15/16 12:55 White Blood Count 13.4x10^3/uL (4.0-11.0) Red Blood Count 4.24x10^6/uL (3.50-5.40) Hemoglobin 12.1g/dL (12.0-15.5) Hematocrit 37.7% (36.0-47.0) Mean Corpuscular Volume 89fL (79-100) Mean Corpuscular Hemoglobin 29pg (25-35) Mean Corpuscular Hemoglobin Concent 32g/dL (31-37) Red Cell Distribution Width 14.7% (11.5-14.5) Platelet Count 417x10^3/uL (140-400) Neutrophils (%) (Auto) 63% (31-73) Lymphocytes (%) (Auto) 24% (24-48) Monocytes (%) (Auto) 9% (0-9) Eosinophils (%) (Auto) 3% (0-3) Basophils (%) (Auto) 1% (0-3) Neutrophils # (Auto) 8.5x10^3uL (1.8-7.7) Lymphocytes # (Auto) 3.2x10^3/uL (1.0-4.8) Monocytes # (Auto) 1.2x10^3/uL (0.0-1.1) Eosinophils # (Auto) 0.4x10^3/uL (0.0-0.7) Basophils # (Auto) 0.1x10^3/uL (0.0-0.2) Segmented Neutrophils % 66% (35-66) Band Neutrophils % 2% (0-9) Lymphocytes % 25% (24-48) Monocytes % 5% (0-10) Eosinophils % 2% (0-5) Platelet Estimate Adequate (ADEQUATE) Sodium Level 141mmol/L (136-145) Potassium Level 4.2mmol/L (3.5-5.1) Chloride Level 101mmol/L (98-107) Carbon Dioxide Level 33mmol/L (21-32) Anion Gap 7 (6-14) Blood Urea Nitrogen 31mg/dL (7-20) Creatinine 0.6mg/dL (0.6-1.0) Estimated GFR (Cockcroft-Gault) 100.0 Glucose Level 110mg/dL (70-99) Calcium Level 8.6mg/dL (8.5-10.1) Total Bilirubin 0.3mg/dL (0.2-1.0) Direct Bilirubin < 0.1mg/dL (0.0-0.2) Aspartate Amino Transf (AST/SGOT) 25U/L (15-37) Alanine Aminotransferase (ALT/SGPT) 55U/L (14-59) Alkaline Phosphatase 47U/L (46-116) Troponin I Quantitative < 0.017ng/mL (0.000-0.055) < 0.017ng/mL (0.000-0.055) < 0.017ng/mL (0.000-0.055) LS-Jzg-Y-Type Natriuretic Peptide 46pg/mL (0-124) Total Protein 5.7g/dL (6.4-8.2) Albumin 3.0g/dL (3.4-5.0) Lipase 245U/L (73-393) Nasal Screen MRSA (PCR) Negative (Negative) Triglycerides Level 80mg/dL (0-150) Cholesterol Level 128mg/dL (0-200) LDL Cholesterol, Calculated 51mg/dL (0-100) VLDL Cholesterol, Calculated 16mg/dL (0-40) HDL Cholesterol 61mg/dL (40-60) Cholesterol/HDL Ratio 2.1 Thyroid Stimulating Hormone (TSH) 1.026uIU/mL (0.358-3.74) Test 09/16/16 05:45 White Blood Count 11.7x10^3/uL (4.0-11.0) Red Blood Count 4.10x10^6/uL (3.50-5.40) Hemoglobin 11.8g/dL (12.0-15.5) Hematocrit 36.6% (36.0-47.0) Mean Corpuscular Volume 89fL (79-100) Mean Corpuscular Hemoglobin 29pg (25-35) Mean Corpuscular Hemoglobin Concent 32g/dL (31-37) Red Cell Distribution Width 14.7% (11.5-14.5) Platelet Count 391x10^3/uL (140-400) Neutrophils (%) (Auto) 78% (31-73) Lymphocytes (%) (Auto) 11% (24-48) Monocytes (%) (Auto) 9% (0-9) Eosinophils (%) (Auto) 1% (0-3) Basophils (%) (Auto) 1% (0-3) Neutrophils # (Auto) 9.2x10^3uL (1.8-7.7) Lymphocytes # (Auto) 1.3x10^3/uL (1.0-4.8) Monocytes # (Auto) 1.1x10^3/uL (0.0-1.1) Eosinophils # (Auto) 0.1x10^3/uL (0.0-0.7) Basophils # (Auto) 0.1x10^3/uL (0.0-0.2) Sodium Level 144mmol/L (136-145) Potassium Level 4.2mmol/L (3.5-5.1) Chloride Level 105mmol/L (98-107) Carbon Dioxide Level 36mmol/L (21-32) Anion Gap 3 (6-14) Blood Urea Nitrogen 24mg/dL (7-20) Creatinine 0.7mg/dL (0.6-1.0) Estimated GFR (Cockcroft-Gault) 83.7 Glucose Level 108mg/dL (70-99) Calcium Level 8.1mg/dL (8.5-10.1) Laboratory Tests Test 09/15/16 12:55 09/16/16 05:45 Troponin I Quantitative < 0.017ng/mL (0.000-0.055) White Blood Count 11.7x10^3/uL (4.0-11.0) Red Blood Count 4.10x10^6/uL (3.50-5.40) Hemoglobin 11.8g/dL (12.0-15.5) Hematocrit 36.6% (36.0-47.0) Mean Corpuscular Volume 89fL (79-100) Mean Corpuscular Hemoglobin 29pg (25-35) Mean Corpuscular Hemoglobin Concent 32g/dL (31-37) Red Cell Distribution Width 14.7% (11.5-14.5) Platelet Count 391x10^3/uL (140-400) Neutrophils (%) (Auto) 78% (31-73) Lymphocytes (%) (Auto) 11% (24-48) Monocytes (%) (Auto) 9% (0-9) Eosinophils (%) (Auto) 1% (0-3) Basophils (%) (Auto) 1% (0-3) Neutrophils # (Auto) 9.2x10^3uL (1.8-7.7) Lymphocytes # (Auto) 1.3x10^3/uL (1.0-4.8) Monocytes # (Auto) 1.1x10^3/uL (0.0-1.1) Eosinophils # (Auto) 0.1x10^3/uL (0.0-0.7) Basophils # (Auto) 0.1x10^3/uL (0.0-0.2) Sodium Level 144mmol/L (136-145) Potassium Level 4.2mmol/L (3.5-5.1) Chloride Level 105mmol/L (98-107) Carbon Dioxide Level 36mmol/L (21-32) Anion Gap 3 (6-14) Blood Urea Nitrogen 24mg/dL (7-20) Creatinine 0.7mg/dL (0.6-1.0) Estimated GFR (Cockcroft-Gault) 83.7 Glucose Level 108mg/dL (70-99) Calcium Level 8.1mg/dL (8.5-10.1) Medications Current Medications Aspirin (Children'S Aspirin) 324 mg 1X ONCE PO ; Start 09/15/16 at 00:30; Stop 09/15/16 at 00:31; Status DC Nitroglycerin (Nitrostat) 0.4 mg PRN Q5MIN PRN SL CHEST PAIN; Start 09/15/16 at 00:00 Morphine Sulfate 2 mg PRN Q1HR PRN IV SEVERE PAIN; Start 09/15/16 at 00:00; Stop 09/15/16 at 06:00; Status DC Ondansetron HCl (Zofran) 4 mg PRN Q8HRS PRN IV NAUSEA/VOMITING; Start 09/15/16 at 01:00; Stop 09/16/16 at 00:59; Status DC Morphine Sulfate 2 mg PRN Q2HR PRN IV SEVERE PAIN; Start 09/15/16 at 01:00; Stop 09/16/16 at 00:59; Status DC Albuterol/ Ipratropium 3 ml 3 ml 1X ONCE NEB ; Start 09/15/16 at 03:00; Stop at 03:01; Status DC Levofloxacin/ Dextrose (LEVAQUIN 500mg PREMIX) 100 ml @ 100 mls/hr 1X ONCE IV Last administered on 09/15/16 06:31; Start 09/15/16 at 06:00; Stop 09/15/16 at 06:59; Status DC Acetaminophen (Tylenol) 650 mg PRN Q4HRS PRN PO FEVER; Start 09/15/16 at 08:30 Aspirin (Ecotrin) 81 mg DAILY PO Last administered on 09/15/16 14:40; Start at 09:00 Calcium/Vitamin D (Oscal D 500mg/ 200uts) 1 tab TIDWMEALS PO Last administered on 09/15/16 18:38; Start 09/15/16 at 09:00 Celecoxib (Celebrex) 200 mg DAILY PO Last administered on 09/15/16 14:33; Start 09/15/16 at 09:00 Vitamin D (Vitamin D3) 1,000 unit DAILY PO Last administered on 09/15/16 14:39 ; Start 09/15/16 at 09:00 Enoxaparin Sodium (Lovenox 40mg Syringe) 40 mg DAILY SQ Last administered on 12:34; Start 09/15/16 at 09:00 Guaifenesin (Mucinex) 600 mg BID PO Last administered on 09/15/16 21:44; Start 09/15/16 at 09:00 Albuterol/ Ipratropium (Duoneb) 3 ml RTQID NEB ; Start 09/15/16 at 09:00; Stop 09/15/16 at 09:15; Status DC Lisinopril (Prinivil) 10 mg DAILY PO Last administered on 09/15/16 14:38; Start 09/15/16 at 09:00 Multivitamins/ Calcium (Thera M Plus) 1 tab DAILY PO Last administered on 14:39; Start 09/15/16 at 09:00 Prednisone (Prednisone) 60 mg DAILY PO Last administered on 09/15/16 14:37; Start 09/15/16 at 09:00 Roflumilast (Daliresp) 500 mcg DAILY PO Last administered on 09/15/16 14:33; Start 09/15/16 at 09:00 Simvastatin (Zocor) 10 mg QHS PO Last administered on 09/15/16 21:44; Start at 21:00 Non-Formulary Medication 2 puff PRN Q4HRS PRN INH SHORTNESS OF BREATH; Start at 08:30; Stop 09/15/16 at 09:19; Status DC Non-Formulary Medication 2 puff BID IH ; Start 09/15/16 at 09:00; Stop 09/15/16 at 09:19; Status DC Citalopram Hydrobromide (Celexa) 40 mg DAILY PO Last administered on 09/15/16 14:38; Start 09/15/16 at 09:00 Desvenlafaxine Succinate (Pristiq Er) 100 mg DAILY PO Last administered on 09/15 14:40; Start 09/15/16 at 09:00 Fluticasone Propionate (Flonase) 2 spray DAILY NS ; Start 09/15/16 at 09:00 Ropinirole HCl (Requip) 0.25 mg QHS PO Last administered on 09/15/16 21:44; Start 09/15/16 at 21:00 Oxybutynin Chloride (Ditropan) 5 mg VAR030 PO Last administered on 09/15/16 21 :44; Start 09/15/16 at 09:00 Non-Formulary Medication 62.5 mcg DAILY IH ; Start 09/15/16 at 09:00; Stop 09/15 at 09:19; Status DC Vitamin E 400 unit 400 unit DAILY PO Last administered on 09/15/16 14:39; Start 09/15/16 at 09:00 Ceftriaxone Sodium/Sodium Chloride (Rocephin/Iv Sodium Chloride 0.9% 50ml) 50 ml @ 100 mls/hr DAILY IV Last administered on 09/15/16 12:32; Start 09/15/16 at 09:30 Albuterol/ Ipratropium (Duoneb) 3 ml RTQID NEB Last administered on 09/16/16 07:34; Start 09/15/16 at 12:00 Budesonide (Pulmicort) 0.5 mg RTBID NEB Last administered on 09/16/16 07:34; Start 09/15/16 at 10:00 Albuterol Sulfate (Ventolin Neb Soln) 2.5 mg PRN Q4HRS PRN NEB SHORTNESS OF BREATH; Start 09/15/16 at 09:15 Famotidine (Pepcid) 20 mg BID PO Last administered on 09/15/16 21:44; Start at 10:00 Regadenoson (Lexiscan) 0.4 mg 1X ONCE IV Last administered on 09/15/16 12:02 ; Start 09/15/16 at 11:15; Stop 09/15/16 at 11:16; Status DC Active Scripts Active Reported Vitamin E (Vitamin E Mixed) 400 Unit Capsule 400 Unit PO DAILY Vitamin D (Cholecalciferol (Vitamin D3)) 1,000 Unit Tablet 1,000 Unit PO DAILY Thera M Plus Tablet (Multivits,Ca,Minerals/Iron/FA) 1 Each Tablet 1 Each PO DAILY Simvastatin 10 Mg Tablet 1 Tab PO QHS Requip (Ropinirole Hcl) 0.5 Mg Tablet 0.25 Mg PO HS Proair Hfa Inhaler (Albuterol Sulfate) 8.5 Gm Hfa.aer.ad 2 Puff INH PRN Q4HRS PRN Pristiq Er (Desvenlafaxine Succinate) 100 Mg Tab.er.24h 1 Tab PO DAILY Prednisone 20 Mg Tablet 60 Mg PO DAILY Prednisone 50 Mg Tablet 50 Mg PO DAILY Prednisone 20 Mg Tablet 40 Mg PO DAILY Prednisone 20 Mg Tablet 1 Tab PO DAILY Prednisone 20 Mg Tablet 30 Mg PO DAILY Prednisone 10 Mg Tablet 10 Mg PO DAILY Oyster Shell 500 Mg + Vit D Tb (Calcium Carbonate/Vitamin D3) 1 Each Tablet 1 Each PO TID Lovenox (Enoxaparin Sodium) 40 Mg/0.4 Ml Disp.syrin 0.4 Ml SQ DAILY Lisinopril 10 Mg Tablet 1 Tab PO DAILY Duoneb 0.5-3(2.5) Mg/3 Ml (Albuterol/Ipratropium) 3 Ml Ampul.neb 3 Ml NEB QID Incruse Ellipta (Umeclidinium [place]) 62.5 Mcg Blst.w.dev 62.5 Mcg IH DAILY Guaifenesin 600 Mg Tablet.er 600 Mg PO BID Flonase Allergy Relief (Fluticasone Propionate) 9.9 Ml Kaufman.susp 2 Sprays NS DAILY Detrol (Tolterodine Tartrate) 2 Mg Tablet 2 Mg PO BID Daliresp (Roflumilast) 500 Mcg Tablet 1 Tab PO DAILY Celexa (Citalopram Hydrobromide) 40 Mg Tablet 1 Tab PO DAILY Celebrex (Celecoxib) 200 Mg Capsule 1 Cap PO DAILY Ceftriaxone 1 Gm-D5w Bag (Ceftriaxone Na/Dextrose,Iso) 1 Gm/50 Ml Piggyback 1 Gm IV DAILY Symbicort 160-4.5 Mcg Inhaler (Budesonide/Formoterol Fumarate) 10.2 Gm Hfa.aer.ad 2 Puff IH BID Aspir 81 (Aspirin) 81 Mg Tablet.dr 1 Tab PO DAILY Tylenol (Acetaminophen) 325 Mg Tablet 2 Tab PO PRN Q4HRS PRN Vitals/I & O Vital Sign - Last 24 Hours 09/15/16 09/15/16 09/15/16 09/15/16 10:37 11:09 14:38 14:46 Temp 98.1 97.8 98.1 97.8 Pulse 96 99 99 Resp 19 19 B/P 102/59 134/56 132/76 Pulse Ox 95 95 97 O2 Delivery Nasal Cannula Nasal Cannula Nasal Cannula O2 Flow Rate 2.0 2.0 2.0 09/15/16 09/15/16 09/15/16 09/15/16 15:20 19:33 20:00 21:06 Temp 96.6 96.6 Pulse 103 Resp 20 B/P 98/54 Pulse Ox 95 O2 Delivery Nasal Cannula Nasal Cannula Nasal Cannula Nasal Cannula O2 Flow Rate 2.0 2.0 2.0 2.0 09/15/16 09/16/16 09/16/16 09/16/16 23:07 03:37 07:12 07:36 Temp 98.6 97.9 97.5 98.6 97.9 97.5 Pulse 98 84 81 Resp 18 16 19 B/P 112/53 106/60 129/69 Pulse Ox 96 95 98 98 O2 Delivery Nasal Cannula Nasal Cannula Nasal Cannula Nasal Cannula O2 Flow Rate 2.0 2.0 2.0 2.0 Intake and Output 09/15/16 09/15/16 09/16/16 15:00 23:00 07:00 Intake Total 240 ml 780 ml Output Total 400 ml 200 ml Balance -160 ml 580 ml ERICA COLIN MD Sep 16, 2016 09:18
[2016-09-16] MEDS: VITAMIN E 200 UNIT CAPSULE. PO SCH (09:38)
[2016-09-16] MEDS: PREDNISONE 20 MG TABLET PO SCH (09:38)
[2016-09-16] MEDS: CELECOXIB 200 MG CAPSULE PO SCH (09:40)
[2016-09-16] MEDS: ROFLUMILAST 500 MCG TABLET. PO SCH (09:40)
[2016-09-16] MEDS: OXYBUTYNIN CHLORIDE 5 MG TABLET PO SCH (09:41)
[2016-09-16] MEDS: CITALOPRAM 20 MG TABLET. PO SCH (09:41)
[2016-09-16] MEDS: ASPIRIN ENTERIC COATED 81 MG TABLET.DR. PO SCH (09:42)
[2016-09-16] MEDS: CALCIUM CARB/VIT D3 500/200 TABLET PO SCH ×2 (09:43→12:43)
[2016-09-16] MEDS: MULTIVITAMIN with MINERAL TABLET. PO SCH (09:43)
[2016-09-16] MEDS: LISINOPRIL 10 MG TABLET PO SCH (09:43)
[2016-09-16] MEDS: CHOLECALCIFEROL (VITAMIN D3) 1,000 UNIT TABLET PO SCH (09:44)
[2016-09-16] MEDS: GUAIFENESIN ER 600 MG TABLET.ER PO SCH (09:44)
[2016-09-16] MEDS: DESVENLAFAXINE 50 MG TAB.ER.24H. PO SCH (09:44)
[2016-09-16] MEDS: ENOXAPARIN 40 MG/0.4 ML DISP.SYRIN. SQ SCH (09:45)
[2016-09-16] MEDS: CEFTRIAXONE SODIUM 1 GM in IV NORMAL SALINE 50ML 50 ML IV SCH (09:45)
[2016-09-16] MEDS: FAMOTIDINE 20 MG TABLET. PO SCH (09:46)
[2016-09-16 10:52] VITALS: BP 97/54
[2016-09-16] MEDS ORDERED: DIPHENHYDRAMINE HCL 25 MG CAPSULE PO PRN (13:15)
[2016-09-16 14:30] VITALS: BP 120/60
--- NOTE | 2016-09-16 20:34 | DS ---
DATE OF DISCHARGE: 09/16/2016 CHIEF COMPLAINT: Chest pain. HISTORY OF PRESENT ILLNESS: The patient is a 65-year-old female who was recently transferred to [facility] from [facility] due to debility after hospitalization there. The patient reported that she was treated for pneumonia in the hospital. She had just been admitted to [facility] a few days ago and was starting physical and occupational therapy there with the goal of returning home. On the evening prior to this admission, she was resting in bed when she had the onset of severe chest pain. She described it as a heaviness or pressure as if something was sitting on her chest and it was difficult to catch her breath. She denied ever experiencing pain like that previously. When her pain persisted she was given aspirin and transferred to the Emergency Room. Initial evaluation there showed a troponin of less than 0.017. EKG was reported to be without acute ischemic change. The patient was admitted for further evaluation. For further details, see admission history and physical. HOSPITAL COURSE: The patient was admitted and placed on telemetry where she remained in sinus rhythm. Her chest pain was significantly improved after receiving the aspirin and gradually resolved. Three troponins were within normal limits. Cardiology was consulted and due to the patient's risk factors for coronary artery disease, further evaluation was recommended. The patient had an echocardiogram and an MPI. The echocardiogram showed a preserved ejection fraction of 60-65% and was basically within normal limits and MPI was without evidence of reversible ischemia or infarct. It was felt that the patient's chest pain was probably musculoskeletal. The patient has chronic respiratory failure due to COPD. She had recently had pneumonia and an acute exacerbation of her COPD. Her treatments for these conditions were continued during the hospital and she remained stable. Her oxygen saturations were good on her usual oxygen per nasal cannula. Chest x-ray at admission here showed some bibasilar atelectasis, but no acute infiltrate. The patient has chronic anxiety, which appears to be well controlled with her home medications. She does report debility from her recent hospitalization. The patient is in agreement with transfer back to [facility] today to continue her therapies with the goal of returning home when she is stronger. FINAL DIAGNOSES: 1. Musculoskeletal chest pain. 2. Chronic respiratory failure with acute exacerbation of chronic obstructive pulmonary disease and recent pneumonia. 3. Chronic anxiety. 4. Debility. DISCHARGE MEDICATIONS: Remain the same as at admission. The patient was transferred back to [facility] today. ERICA COLIN MD DR: ANSON/odilon JOB#: [id number] / [id number] DINA
== END 2016-09-16 15:40 | DRG 189 ==
LOC: ER 23:45 → 6 SOUTH 09-15 00:33 → OBSVTOIN 09-15 08:15
PROVIDERS: ADMIT Family Medicine; ATTEND Family Medicine
DX: J96.20 Acute and chronic respiratory failure, unspecified whether with hypoxia or hypercapnia (principal); J18.9 Pneumonia, unspecified organism; J44.1 Chronic obstructive pulmonary disease with (acute) exacerbation; J98.11 Atelectasis; R07.89 Other chest pain; E11.9 Type 2 diabetes mellitus without complications; E78.00 Pure hypercholesterolemia, unspecified; E78.5 Hyperlipidemia, unspecified; F41.9 Anxiety disorder, unspecified; G25.81 Restless legs syndrome; G47.33 Obstructive sleep apnea (adult) (pediatric); H35.30 Unspecified macular degeneration; I10 Essential (primary) hypertension; F32.9 Major depressive disorder, single episode, unspecified; M19.90 Unspecified osteoarthritis, unspecified site; N32.81 Overactive bladder; Z79.1 Long term (current) use of non-steroidal anti-inflammatories (NSAID); Z88.6 Allergy status to analgesic agent; Z88.0 Allergy status to penicillin; Z88.8 Allergy status to other drugs, medicaments and biological substances; Z82.49 Family history of ischemic heart disease and other diseases of the circulatory system; Z87.01 Personal history of pneumonia (recurrent); Z90.49 Acquired absence of other specified parts of digestive tract; Z87.891 Personal history of nicotine dependence; Z99.81 Dependence on supplemental oxygen; Z79.899 Other long term (current) drug therapy; Z98.890 Other specified postprocedural states
CPT/HCPCS: 36415; 71010; 78452; 80048; 80061; 80076; 83690; 83880; 84443; 84484; 85007; 85027; 87641; 93005; 93017; 93306; 94250; 94640; 94760; 96374; 96376; A9500; G0378; G0379; J0696; J1650; J1956; J2785; J7512; J7620; Q0163

== ENCOUNTER → 2018-05-29 | Outpatient (CLI) | payer OTHER, MEDICAID ==
[~2018-05-29] MED LIST: ACET325T9 PO; ASPI-482 PO; BUDE10.2 IH; CALC1TAB70 PO; CEFT1PIG2 IV; CELE200C PO; CHOL10002 PO; CITA40TA12 PO; DESV100T PO; ENOX40DI SQ; FLUT9.9S NS; GUAI600T79 PO; IPRA3AMP29 NEB; LISI10TA2 PO; MULT-638 PO; PRED-220 PO; PRED20TA PO; PRED50TA PO; PROAIR HFA8.5 GM INH; ROFL500T7 PO; ROPI0.5T PO; SIMV10TA3 PO; TOLT2TAB2 PO; UMEC62.5 IH; VITA400C36 PO
--- NOTE | 2018-05-29 16:12 | RAD ---
Three-view cervical spine series Clinical indications: Neck pain radiating down the left arm. FINDINGS: No acute fracture of the cervical spine is evident. There is a moderate compression fracture of T5 vertebral body. No discitis or osteolytic process is seen. There is grade 1 anterolisthesis of C4-5. Moderate to severe degenerative disc space narrowing and endplate spurring is seen at C5-6. IMPRESSION: No acute fracture of the cervical spine. Moderate compression fracture of T5 of indeterminate age. Electronically signed by: Derrick Lucas MD (05/29/2018 4:08 PM) [id number]
== END | disposition home or self-care (01) ==
LOC: RAD 14:27
PROVIDERS: ATTEND Family Medicine
DX: M48.54XA Collapsed vertebra, not elsewhere classified, thoracic region, initial encounter for fracture (principal); M50.322 Other cervical disc degeneration at C5-C6 level; M48.02 Spinal stenosis, cervical region; M46.02 Spinal enthesopathy, cervical region; M43.12 Spondylolisthesis, cervical region; I10 Essential (primary) hypertension; E11.9 Type 2 diabetes mellitus without complications; J44.9 Chronic obstructive pulmonary disease, unspecified; E78.5 Hyperlipidemia, unspecified; E78.00 Pure hypercholesterolemia, unspecified; G47.33 Obstructive sleep apnea (adult) (pediatric); Z90.49 Acquired absence of other specified parts of digestive tract; Z87.891 Personal history of nicotine dependence; Z88.0 Allergy status to penicillin; Z88.6 Allergy status to analgesic agent; Z88.8 Allergy status to other drugs, medicaments and biological substances; Z82.49 Family history of ischemic heart disease and other diseases of the circulatory system
CPT/HCPCS: 72040